=== PATIENT | male | born 1970 | race Caucasian/White ===

== ENCOUNTER 2016-12-27 17:25 | Emergency (ER) | payer OTHER ==
[~2016-12-27] VITALS: Ht 182.9 cm; Wt 98.9 kg
[2016-12-27 17:28] VITALS: TEMP 36.8; Ht 182.9 cm; Wt 98.9 kg
[2016-12-27] MEDS ORDERED: MoRPHine SULFATE 10 MG/ML CARP/VIAL IM STA (17:34)
--- NOTE | 2016-12-27 18:20 | DIAGNOSTIC IMAGING REPORT ---
RIGHT SHOULDER 3 VIEWS CLINICAL HISTORY: Right shoulder injury. FINDINGS: 3 views of the right shoulder are obtained. No prior studies are available for comparison at the time of dictation. The skeletal structures are well mineralized. No fracture or dislocation is seen. The glenohumeral and acromioclavicular joints are well-maintained. The overlying soft tissues are within normal limits. Imaged right lung parenchyma appears clear. IMPRESSION: Unremarkable radiographic assessment of the right shoulder. Electronically signed by: Cedric Boss M.D. 12/27/2016 6:19 PM Dictated Date/Time: 12/27/2016 6:18 PM
[2016-12-27] MEDS ORDERED: HYDR-5688 PO (18:46)
--- NOTE | 2016-12-27 18:46 | EMERGENCY ROOM VISIT NOTE ---
ED Visit Note First contact with patient: 17:32 CHIEF COMPLAINT: Shoulder pain HISTORY OF PRESENT ILLNESS: This 46-year-old male patient presents to the emergency department ambulatory complaining of pain in the right shoulder. The patient states that he was attempting to lift a cast iron sink into a dumpster, when he felt a tearing sensation in his right shoulder. There is limitation of motion of the arm because of the pain. The pain is moderate, constant and increases with motion of the hand and arm. The patient states the pain is sharp and 9/10. The patient has taken no medication for relief of the pain. No previous significant previous shoulder disease or injury. No numbness or tingling. No neck or back pain. No chest pain or shortness of breath. No abdominal pain or nausea/vomiting. No cough. REVIEW OF SYSTEMS: A 6 system review of systems was performed with positives and pertinent negatives in the HPI. ALLERGIES: Bactrim, tramadol, penicillins MEDICATIONS: No chronic medications PMH: No significant past medical history SOCIAL HISTORY: The patient lives locally with family. PHYSICAL EXAM: Vital Signs: Reviewed nurse's notes, vital signs stable. GENERAL : This is a 46-year-old male, in no acute distress, but appears to be in pain, well-developed, well-nourished. MUSCULOSKELETAL: There is no deformity in the contour of the right shoulder and there are no lawson deformities noted. There is no sulcus sign. There is tenderness over the anterior shoulder. The patient' s range of motion is decreased secondary to patient discomfort. Supraspinatus strength 4/5. There is no clavicle tenderness. No tenderness of the humerus, elbow, wrist, or hand. [employer] strength 5/5. Radial pulse 2+. NECK: No tenderness to palpation over the cervical spine. HEART: Regular rate and rhythm without murmurs gallops or rubs. LUNGS: Clear to auscultation bilaterally without wheezes, rales or rhonchi. No accessory muscle use. No retractions. NEURO: The patient is alert and oriented to person, place, and time. Normal sensation to light and sharp touch. Capillary refill less than 2 seconds. EMERGENCY DEPARTMENT COURSE: I examined the patient. Patient was medicated with IM morphine with some relief of his pain. An X-ray of the right shoulder was reviewed by myself and radiology and shows no acute findings. He was placed in an arm sling and given information for orthopedic follow-up. He was given a short course of Cyril for pain. The [place] prescription drug monitoring program was queried and no red flags were identified. The patient verbalized understanding of my assessment and treatment plan and was discharged home in good condition. DIAGNOSIS: Shoulder injury Current/Historical Medications Scheduled PRN Hydrocodone/Acetaminophen 5MG/325MG (Cyril 5MG/325MG), 1-2 TABLET PO Q4H PRN for Pain Allergies Coded Allergies: Penicillins (Unverified Allergy, Intermediate, CHILDHOOD ALLERGY, 12/27/16) Sulfamethoxazole w/Trimethoprim (Unverified Allergy, Intermediate, FACE AND HANDS SWELL, 12/27/16) Tramadol (Unverified Allergy, Intermediate, MIGRAINE/COLD SWEATS, 12/27/16) Vital Signs Date Time Temp Pulse Resp B/P (MAP) Pulse Ox O2 Delivery O2 Flow Rate FiO2 12/27/16 19:20 80 18 158/106 98 12/27/16 18:46 80 18 166/103 96 Room Air 12/27/16 17:28 36.8 77 20 158/95 95 Room Air Medications Administered Medications (Trade) Dose Ordered Sig/Lilly Route Start Time Stop Time Status Last Admin Dose Admin Morphine Sulfate (MoRPHine SULFATE INJ) 8 mg NOW STAT IM 12/27/16 17:34 12/27/16 17:36 DC 12/27/16 18:05 8 MG Acetaminophen/ Hydrocodone Bitart (Cyril 5/325mg Home Pack) 1 homepack UD ONCE PO 12/27/16 19:15 12/27/16 19:16 DC 12/27/16 19:18 1 HOMEPACK Departure Information Impression Primary Impression: Right shoulder pain Dispostion Home / Self-Care Condition GOOD Prescriptions Hydrocodone/Acetaminophen 5MG/325MG (Cyril 5MG/325MG) Tab 1-2 TABLET PO Q4H Y for Pain, #15 TAB For Initial Treatment Prov: Lorene Plaza PA-C 12/27/16 Referrals No Doctor, Assigned (PCP) Pan Chiang D.O. Patient Instructions [facility] Additional Instructions You have been treated in the Emergency Department for Shoulder Pain. You have received pain medicine in the emergency department which impairs your ability to operate a vehicle. It is illegal for you to drive after receiving these medicines. You have been prescribed Cyril to be used for pain control. This is a narcotic medication. You cannot drive or consume alcohol while on this medicine. This medicine should only be used for pain that cannot be controlled with over-the- counter pain medicines. For pain control, you can use the following [id number] medicines (if >12 yo): - Regular strength (325mg/tab) Tylenol (acetaminophen) 2 tabs every 4-6 hours as needed. Do not exceed 12 tablets in a 24 hour period. Avoid taking more than 4 grams (4000 mg) of Tylenol per day. This includes any other sources of acetaminophen you may take on a regular basis. - Regular strength (200 mg/tab) Advil (ibuprofen) 1-2 tabs every 4-6 hours as needed. Do not exceed a dose of 3200 mg per day. If this is a recent injury (<24 hrs), ice can be applied to the area of pain for the first 3 days to help decrease pain and inflammation. You have been provided the number for an Orthopaedic Surgeon. You should call this number as soon as possible to establish a follow-up visit from today's Emergency Department visit. Keep the shoulder brace in place until evaluated by Orthopedics. Perform range of motion exercises with the arm multiple times daily. Return to the Emergency Department if your current symptoms worsen despite treatment course outlined above, or if you develop any of the following symptoms : intractable pain despite aforementioned treatment course or new onset of numbness or tingling of the arm.
[2016-12-27] MEDS ORDERED: NORCO 5/325MG HOME PACK PO ONE (19:15)
[2016-12-27 19:20] VITALS: BP 158/106; PULSE 80; O2SAT 98
== END 2016-12-27 19:22 | disposition home or self-care (01) ==
LOC: C.EDB 17:27 → C.EDC 19:22
DX: M25.511 Pain in right shoulder (principal)